=== PATIENT | female | born 2005 | race Asian ===

== ENCOUNTER 2024-04-02 11:34 | Emergency (ER) | payer OTHER, SELFPAY ==
[2024-04-02] VITALS (8 sets, daily range): BP systolic 94–129; BP diastolic 67–82; PULSE 83–99; RESP 16; TEMP 36.6–36.7; O2SAT 97–99; BMI 18.5
[2024-04-02 12:28] LABS: Absolute Lymphocyte Count 2.35 X10^3/uL (0.83-4.51); Absolute Neutrophil Count 3.9 X10^3/uL (2.0-7.7); Basophil# 0.02 X10^3/uL; Basophil% 0.3 % (0-1); Eosinophil# 0.11 X10^3/uL; Eosinophils% 1.6 % (0-5); Hematocrit 38.4 % (37-47); Hemoglobin 12.9 g/dL (12.0-15.0); Lymphocyte # 2.35 X10^3/ul (0.83-4.51); Lymphocyte % 34.9 % (19-41); Mean Corp Hgb Conc 33.6 g/dL (32-36); Mean Corpuscular Hgb 30.6 pg (27.0-32.0); Mean Platelet Vol. 11.1 fl (6.2-12.0); Monocyte# 0.33 X10^3/uL; Monocyte% 4.9 % (0-10); NRBC Flagged by Analyzer 0 % (0-5); Neutrophil # 3.91 X10^3/uL (2.7-7.7); Platelet Count 233 K/mm3 (150-450); RBC Distribution Width SD 40.1 fl (35.1-43.9); Red Blood Count 4.22 M/mm3 (4.2-5.4); White Blood Count 6.7 K/mm3 (4.4-11.0)
[2024-04-02 12:55] LABS: Anion Gap 3 (5-15); BUN 12 mg/dL (7-18); BUN/Creat Ratio 18.6 RATIO (10-20); Calcium,Total 9.1 mg/dL (8.5-10.1); Chloride 108 mmol/L (98-107); Creatinine, Serum 0.64 mg/dL (0.55-1.02); EST Glomerular Filtration Rate 124 mL/min (>60); Est Glom Filt Rate - Afr Amer 150 mL/min (>60); Estimated Creatinine Clearance 97.58 ml/min; Glucose 109 mg/dL (74-106); Potassium 3.8 mmol/L (3.5-5.1); Sodium Level 139 mmol/L (136-145)
[2024-04-02 12:56] LABS: Alcohol, Blood (Medical)-Serum < 3.0 mg/dL
[2024-04-02 12:56] LABS: Amphetamine Urine VISTA NEGATIVE (<1000 ng/mL); Barbiturate Urine VISTA NEGATIVE (< 200 ng/mL); Benzodiazepine Urine VISTA NEGATIVE (< 200 ng/mL); Cocaine Urine VISTA NEGATIVE (< 300 ng/mL); Ecstacy Urine VISTA POSITIVE (< 500 ng/mL); Methadone Urine VISTA NEGATIVE (< 300 ng/mL); PCP Urine VISTA NEGATIVE (< 25 ng/mL); THC Urine VISTA NEGATIVE (< 50 ng/mL); Vista UDS pH Range 6
[2024-04-02 12:59] LABS: Internal QC Validated? YES +Cl - CLEAR BKGD; Pregnancy, Serum, hCG Quali. NEGATIVE Negative
--- NOTE | 2024-04-02 13:17 | EDS_ITS ---
HPI HPI - Psych History of Present Illness Chief Complaint: Suicidal Informant: patient Onset/Context/Timing Onset: Days Context: Gradual Onset Timing: Continuous Worsened by: - (Increased stress at school) Relieved by: Nothing Associated Symptoms Associated Symptoms - Psych: Positive for Depressed, Hopelessness and Suicidal Thoughts; Negative for Change in Eating, Change in sleeping, Paranoia, Visual Hallucinations or Auditory Hallucinations Specific plan (suicidal thought): Jumping off high places, going to railroad tracks Narrative Narrative: Patient presents with depression and suicidal ideation that has been getting worse over the past couple days. Patient states she has gradually gotten worse over the past several months. Patient states she has been having increased stress at school. Patient states she feels like she is hopeless at times. Patient states she has had thoughts of jumping off of high places and going down to railroad tracks. Patient denies any visual or auditory hallucinations. Pat tee denies any changes in her eating or sleeping habits. Patient states she has not been compliant with her medications. [facility] Medical History Anxiety Depression Home Medications ?Medication ?Instructions ?Recorded ?Last Taken ?Type bupropion HCl 300 mg 24 hr tablet, 300 mg PO DAILY 04/02/24 Unknown History extended release fluoxetine 60 mg tablet 60 mg PO DAILY 04/02/24 Unknown History Allergy/AdvReac Type Severity Reaction Status Date / Time No Known Allergies Allergy Verified 04/02/24 11:36 Social History Smoking Status: Never smoker ROS ROS ED Constitutional Constitutional ED: Denies chills or fever(s) Eyes Eyes: Denies blurry vision or change in vision ENT ENT ED: Denies rhinorrhea or sore throat Cardiovascular Cardiovascular: Denies chest pain or palpitations Respiratory/Chest Respiratory/Chest: Denies cough or dyspnea Gastrointestinal Gastrointestinal: Denies nausea or vomiting Genitourinary Genitourinary ED: Denies dysuria or hematuria Musculoskeletal Musculoskeletal: Denies back pain or neck pain Integumentary Denies abscess or rash Neurologic Neurologic: Denies headache(s) or weakness Psychiatric Psychiatric: Reports depression, suicidal ideation and suicidal thoughts Allergic/Immunologic Allergic/Immunologic ED: Denies mouth swelling or urticaria EXAM Physical Exam Const Vital Signs: 04/02/24 11:37 04/02/24 12:35 04/02/24 14:29 Temperature 98.1 F 97.8 F Temperature Source Temporal Oral Pulse Rate 99 95 Respiratory Rate 16 16 Blood Pressure 117/76 110/71 94/68 Blood Pressure Mean 89 84 76 Pulse Ox 98 99 Oxygen Delivery Method Room Air Room Air 04/02/24 15:00 04/02/24 16:00 Temperature Temperature Source Pulse Rate 91 88 Respiratory Rate 16 16 Blood Pressure 115/67 129/71 H Blood Pressure Mean 83 90 Pulse Ox 99 98 Oxygen Delivery Method Room Air Room Air Positive well nourished and well developed General Appearance ED: well developed and NAD HEENT Reports moist mucous membranes normocephalic and atraumatic Neck supple and no JVD Resp normal respiratory effort and clear to auscultation bilaterally Cardio Rate: regular rate Rhythm: regular rhythm GI non-tender and non-distended Palpation: soft Neuro oriented x3, CN's II-XII intact bilaterally and no sensory deficits noted [place] Coma Scale: document GCS findings Spontaneous Obeys Commands Oriented 15 Sensorium / Orientation: alert Motor Exam: strength 5/5 throughout Psych mental status grossly normal and cooperative Speech: soft Mood & Affect: depressed and flat affect Thought Content: suicidality, No homicidality, No phobia(s), No delusion(s) and No hallucination(s) MDM MDM MDM Narrative Medical decision making narrative: Medical screening labs will be obtained. CBC will be obtained to assess for leukocytosis and anemia. Basic metabolic profile will be obtained to assess for electrolyte abnormality and renal function. Serum hCG will be obtained to assess for . Serum alcohol level will be obtained to assess for alcohol intoxication. Urine drug screen will be obtained to assess for substance abuse. Lab Data Attestation: I reviewed the patient's lab results. Lab results narrative: CBC was reviewed and was within normal limits. Basic metabolic profile was reviewed and was within normal limits. Serum hCG was reviewed and was negative. Serum alcohol level was reviewed and was less than 3.0. Urine tox cream was reviewed and was positive for opiates and MDMA. Labs: Laboratory Results - last 24 hr 04/02/24 04/02/24 12:18 12:30 WBC 6.7 RBC 4.22 Hgb 12.9 Hct 38.4 MCV 91.0 MCH 30.6 MCHC 33.6 RDW Std Deviation 40.1 RDW Coeff of [place] 12.0 Plt Count 233 MPV 11.1 Immature Gran % (Auto) 0.300 Neut % (Auto) 58.0 Lymph % (Auto) 34.9 [place] % (Auto) 4.9 Eos % (Auto) 1.6 Baso % (Auto) 0.3 Absolute Neuts (auto) 3.9 Absolute Lymphs (auto) 2.35 Nucleated RBC % 0 Sodium 139 Potassium 3.8 Chloride 108 H Carbon Dioxide 28.0 Anion Gap 3 L BUN 12 Creatinine 0.64 Estim Creat Clear Calc 97.58 Est GFR (MDRD) Af Amer 150 Est GFR (MDRD) Non-Af 124 BUN/Creatinine Ratio 18.6 Glucose 109 H Calcium 9.1 Serum , Qual NEGATIVE Urine Opiates Screen POSITIVE H Urine Methadone Screen NEGATIVE Ur Barbiturates Screen NEGATIVE Ur Phencyclidine Scrn NEGATIVE Ur Amphetamines Screen NEGATIVE MDMA (Ecstasy) Screen POSITIVE H U Benzodiazepines Scrn NEGATIVE Urine Cocaine Screen NEGATIVE U Cannabinoids Screen NEGATIVE Ur Drug Screen Comment Ethyl Alcohol < 3.0 Treatment and Re-Evaluation Narrative: Suicide precautions were maintained. Patient is medically cleared for admission to psychiatric facility. Crisis counselor was in to evaluate the patient would need to be admitted to psychiatric facility. Patient understands. Crisis cou nselor will attempt to make arrangements for placement. Patient understands and is agreeable with plan. Gail slip filled out and placed on the chart. Discharge Plan Triage Chief Complaint: Suicidal ED Provider: Krishna Kim Dx/Rx/DC Orders Clinical Impression: Depression, Suicidal ideation Prescriptions: No Action bupropion HCl 300 mg tablet extended release 24 hr 300 mg PO DAILY fluoxetine 60 mg tablet 60 mg PO DAILY Primary Care Provider: Care Physician,No Primary Referrals: Care Physician,No Primary [Primary Care Provider] - Print Language: Fijian Disposition Disposition: Psychiatric Hospital or Unit
--- NOTE | 2024-04-02 14:29 | NURSING ---
FAXED CHART TO CRISIS
== END 2024-04-02 23:03 ==
PROVIDERS: Emergency Provider Emergency Medicine; Visit Provider Emergency Medicine
DX: F32.A Depression, unspecified (principal); R45.851 Suicidal ideations; F41.9 Anxiety disorder, unspecified; Z79.899 Other long term (current) drug therapy
CPT/HCPCS: 80048; 80307; 82077; 84703; 85025; 99284

== ENCOUNTER 2024-04-18 21:24 | Emergency (ER) | payer OTHER, SELFPAY ==
[2024-04-18 21:25] VITALS: BP 135/86; PULSE 122; RESP 16; TEMP 36.6; O2SAT 95; BMI 18.5
[2024-04-18 21:46] VITALS: BP 114/62; PULSE 101; RESP 16; O2SAT 97
--- NOTE | 2024-04-18 21:50 | ED.RN ---
Updated pt's mother on pt's status and care plan. Questions/concerns answered
[2024-04-18] MEDS: Ondansetron 4 MG/2 ML Vial IV ×2 (21:57→22:43)
--- NOTE | 2024-04-18 22:07 | ED.VIS.GI ---
HPI HPI - GI History of Present Illness Chief Complaint: Nausea/Vomiting Informant: patient and friend Nausea/Vomiting/Emesis GI Symptom: Positive for Nausea and Vomiting Onset: Today and Hours Severity: Moderate Diarrhea/Melena/Hematochezia GI Symptom: Negative for Diarrhea or Melena Associated Symptoms Associated Symptoms: Negative for Dysuria, Frequency, Hematuria or Urgency Narrative Narrative: 19-year-old female history of depression. Several weeks ago was admitted to a mental health facility. Is a [employer] student. Tonight around 5 PM ingested a cannabis edible. About 3 hours later started having nausea and vomiting. Prior to the nausea and vomiting she had no abdominal pain. No fever. No headache. No dysuria. She was feeling fine. Prior similar symptoms: Yes Recent Illness/Hospitalization: Yes PFSH PFSH Medical History Anxiety Depression Home Medications ?Medication ?Instructions ?Recorded ?Last Taken ?Type bupropion HCl 300 mg 24 hr tablet, 300 mg PO DAILY 04/02/24 Unknown History extended release fluoxetine 60 mg tablet 60 mg PO DAILY 04/02/24 Unknown History ondansetron 4 mg disintegrating 4 mg PO Q6H PRN nausea and 04/18/24 Unknown Rx tablet vomiting #10 tabs Allergy/AdvReac Type Severity Reaction Status Date / Time No Known Allergies Allergy Verified 04/18/24 21:27 Social History Smoking Status: Never smoker ROS ROS ED ROS Narrative Nausea and vomiting. Constitutional Constitutional ED: Denies chills or fever(s) ENT ENT ED: Denies ear pain Cardiovascular Cardiovascular: Denies chest pain Respiratory/Chest Respiratory/Chest: Denies cough or dyspnea Gastrointestinal Gastrointestinal: Reports nausea and vomiting; Denies abdominal pain, constipation, diarrhea or melena Genitourinary Genitourinary ED: Denies dysuria or hematuria Musculoskeletal Musculoskeletal: Denies arthralgias or back pain Integumentary Denies abscess or Abrasions Neurologic Neurologic: Denies headache(s) Psychiatric Psychiatric: Denies anxiety Endocrine Endocrinology: Denies polydipsia Hematologic/Lymphatic Hematologic/Lymphatic: Denies easy bleeding Allergic/Immunologic Allergic/Immunologic ED: Denies mouth swelling, tongue swelling or urticaria EXAM Physical Exam Narrative Exam Narrative: 19-year-old female sitting upright in bed. Vital signs are stable afebrile. 2 friends at bedside. H EENT exam pupils round reactive light. No head or facial trauma. No droop. Normal speech. Neck nontender. No lymphadenopathy. Lungs clear to auscultation bilaterally. Heart regular rhythm with rate of 100. No murmur. Abdomen soft, nontender, nondistended normal bowel sounds no peritoneal signs. Moving all 4 extremities. Nontender no edema. Bilateral speech language pathologist assistant strength. Dorsi plantarflexion intact. Awake. Alert. Actively nauseated and throwing up an emesis bag. No focal motor deficits. Const Vital Signs: 04/18/24 21:25 04/18/24 21:46 04/18/24 22:44 Temperature 97.8 F Temperature Source Temporal Pulse Rate 122 H 101 H 116 H Respiratory Rate 16 16 18 Blood Pressure 135/86 H 114/62 113/65 Blood Pressure Mean 102 79 81 Pulse Ox 95 97 100 Oxygen Delivery Method Room Air Room Air Room Air Positive well nourished and well developed; Negative for obese, cachectic, contractures or unkempt General Appearance ED: well developed and NAD; Negative for unkempt, cachectic, contractures or pallor Nutritional Appearance: Negative for cachectic or obese HEENT Reports moist mucous membranes normocephalic and atraumatic; Negative for trauma or tenderness Eyes PERRL and EOMs intact bilaterally General Eye ED: Negative for pale conjunctiva or scleral icterus Neck no lymphadenopathy, supple and no JVD General: Negative for tenderness Carotids: Negative for other Lymph Lymphatic: Negative for other Resp normal respiratory effort and clear to auscultation bilaterally Effort and Inspection: Negative for respiratory distress Auscultation: Negative for rales, rhonchi, wheezes or diminished lung sounds Cardio regular rate, regular rhythm, S1 normal heart sound, S2 normal heart sound and no murmurs Rate: Negative for bradycardia GI non-tender, non-distended and no masses Inspection: Negative for abdominal distention Auscultation: normoactive bowel sounds Palpation: soft; Negative for tender, guarding, hernia, mass, pulsatile mass or rebound tenderness present Back/Spine no CVA tenderness General Back: Negative for CVA tenderness Cervical Spine: Negative for cervical spine tenderness Thoracic Spine / Upper Back: Negative for thoracic spinal tenderness Lumbar Spine / Lower Back: Negative for lumbar spinal tenderness Coccyx: Negative for other Extremity full ROM General Extremety ED: Negative for edema, tenderness or other findings General Extremity: Negative for edema or other findings Neuro CN's II-XII intact bilaterally and moves all extremities Sensorium / Orientation: alert, oriented to person, oriented to place and oriented to time; Negative for orientation impaired, confused, lethargic or stuporous Motor Exam: strength 5/5 throughout; Negative for general weakness or strength abnormal Psych mental status grossly normal and thought process normal Appearance: Negative for unkempt Attitude: No agitated Mood & Affect: Negative for depressed, anxious or tearful Skin no wounds General Skin Exam: Negative for jaundice or pallor Lesions: no lesions Rashes: no rashes Trauma: Negative for abrasion Nails: Negative for discolored MDM MDM MDM Narrative Medical decision making narrative: 19-year-old female nausea vomiting after she did have recent labs due to another visit several weeks ago. I reviewed those labs and they were unremarkable. Taking an edible cannabis gummy. Patient IV fluids and Zofran and reassess. Abdomen is benign. I do not think she needs any labs or imaging. Repeat exam patient is doing better 11:30 PM. Abdomen is benign. She is awake and talking. Her nausea is resolving. She has taken a few sips of Powerade. She is resting comfortably. Should be watched for period of time if she is doing well should be discharged home with Zofran. Friend is here with her that will accompany her to the dorm. History & Record Review Discussion w/independent historian: Patient and Friend Additional record(s) reviewed:: Prior inpatient record, Prior outpatient record, Prior ED visit and No prior records Discharge Plan Triage Chief Complaint: Nausea/Vomiting ED Provider: Cali Roth Dx/Rx/DC Orders Clinical Impression: Vomiting, Cannabis use disorder, Hx of major depression Instructions: ED Vomiting (Adult) Prescriptions: New ondansetron 4 mg tablet,disintegrating 4 mg PO Q6H PRN (Reason: nausea and vomiting) Qty: 10 0RF No Action bupropion HCl 300 mg tablet extended release 24 hr 300 mg PO DAILY fluoxetine 60 mg tablet 60 mg PO DAILY Primary Care Provider: Care Physician,No Primary Referrals: Chance Stratton MD [Med Staff - Director [employer]] - 3-5 Days if not improving Care Physician,No Primary [Primary Care Provider] - Activity Restrictions/Additional Instructions: Zofran as needed for nausea. You may use water like dissolve under your tongue. Plenty of fluids and rest. Slowly increase your diet as tolerated. Return if unable to keep fluids down. No more Gummies. No alcohol tonight. No driving. Print Language: Slovenian Disposition Disposition: Home, Self Care
[2024-04-18 22:44] VITALS: BP 113/65; PULSE 116; RESP 18; O2SAT 100
[2024-04-18 23:53] VITALS: BP 122/77; PULSE 106; RESP 16; O2SAT 97
[2024-04-19] MEDS: Metoclopramide 10 MG/2 ML Vial 5 MG IV (00:51)
[2024-04-19 00:52] VITALS: BP 114/74; PULSE 118; RESP 15; O2SAT 96
--- NOTE | 2024-04-19 01:59 | ED.RN ---
Updated pt's mother on pt's current observation status. Questions/concerns answered
[2024-04-19 02:00] VITALS: BP 107/51; PULSE 107; RESP 16; O2SAT 97
[2024-04-19 03:46] VITALS: BP 116/65; PULSE 103; RESP 16; O2SAT 97
[2024-04-19 05:00] VITALS: BP 117/83; PULSE 101; RESP 16; O2SAT 100
[2024-04-19 05:59] VITALS: BP 117/83; PULSE 101; RESP 16; TEMP 36.6; O2SAT 100
== END 2024-04-19 07:11 | disposition home or self-care (01) ==
LOC: ED 04-19 00:03
PROVIDERS: Emergency Provider Emergency Medicine; Visit Provider Emergency Medicine
DX: F12.90 Cannabis use, unspecified, uncomplicated (principal); R11.2 Nausea with vomiting, unspecified; F41.9 Anxiety disorder, unspecified; F32.A Depression, unspecified; Z79.899 Other long term (current) drug therapy
CPT/HCPCS: 96374; 96375; 96376; 99285; J7030; J7040; A4216; J2405